=== PATIENT | female | born 1995 | race Caucasian/White ===

== ENCOUNTER 2016-12-07 23:57 | Emergency (ER) | payer OTHER ==
[~2016-12-07] VITALS: Ht 154.9 cm; Wt 46.6 kg
[~2016-12-07 23:57] MED LIST: BCPILLS PO; CLR10 PO; LISD30CA4 PO; VNTHFA/IN INH
[2016-12-08 00:01] VITALS: TEMP 36.6; Ht 154.9 cm; Wt 46.6 kg
[2016-12-08] MEDS ORDERED: ALBUT/IPRATROP 3MG/0.5MG NEB 3 ML VIAL ONE (00:05)
[2016-12-08] MEDS ORDERED: VNTHFA/IN INH (00:56)
[2016-12-08] MEDS ORDERED: PRED20TA2 PO (00:56)
[2016-12-08] MEDS ORDERED: ALBUTEROL HFA 8 GM INHALER INH ONE (01:00)
[2016-12-08 01:21] VITALS: BP 131/70; PULSE 66; O2SAT 99
--- NOTE | 2016-12-08 06:56 | EMERGENCY ROOM VISIT NOTE ---
History First contact with patient: 00:04 Chief Complaint: RESPIRATORY PROBLEMS Stated Complaint: ASTHMA ATTACK Nursing Triage Summary: Patient ambulatory to triage, states "Around 1100 today, I started having some trouble breathing. 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 I just moved and have no idea where my rescue inhaler is. We had some friends over and I have been talking a lot. The shortness of breath worsened over the last hour." Patient only able to speak in short sentences in traige; tripod breathing. History of Present Illness The patient is a 21 year old female who presents to the Emergency Room with complaints of worsening asthma symptoms over the past 12 hours. The patient has a history of asthma and is in the process of moving. The patient is unsure where her rescue inhaler is because of the move. She states that her symptoms have worsened over the past one hour. She has not had fever or chills. No additional symptoms. She rates her discomfort a 7/10. Review of Systems More than 10 systems were reviewed and otherwise negative with the exception of history of present illness. Past Medical/Surgical History Medical Problems: (1) Deviated septum (2) Staph infection Surgical Problems: (1) Hx of tonsillectomy (2) S/P rhinoplasty Family History Patient reports no known family medical history. Social History Smoking Status: Former Smoker Alcohol Use: occasionally Drug Use: none Marital Status: in relationship Housing Status: lives with roommate Occupation Status: [employer] student Current/Historical Medications Scheduled Albuterol Hfa (Ventolin Hfa), 2 PUFFS INH QID Lisdexamfetamine Dimesylate (Vyvanse), 30 MG PO BID Prednisone (Prednisone Tab), 2 TAB PO DAILY Physical Exam Vital Signs Date Time Temp Pulse Resp B/P (MAP) Pulse Ox O2 Delivery O2 Flow Rate FiO2 12/08/16 01:21 66 20 131/70 99 12/08/16 00:25 66 24 99 Room Air 12/08/16 00:11 Room Air 12/08/16 00:01 36.6 80 20 131/91 98 Room Air Pain Rating (0-10): 0 Physical Exam VITALS: Vitals are noted on the nurse's note and reviewed by myself. Vital signs stable. GENERAL: Well-developed, well-nourished, white female who is currently undergoing a DuoNeb breathing treatment upon my arrival to the room EARS: External ear normal. External auditory canals clear, tympanic membranes pearly robert without erythema or effusion bilaterally. HEART: Regular rate and rhythm without murmurs gallops or rubs. LUNGS: Clear to auscultation bilaterally without wheezes, rales or rhonchi. No retractions or accessory muscle use. Medical Decision & Procedures Medications Administered Medications (Trade) Dose Ordered Sig/Sugey Route Start Time Stop Time Status Last Admin Dose Admin Albuterol/ Ipratropium (Duoneb) 3 ml STK-MED ONCE .ROUTE 12/08/16 00:05 12/08/16 00:06 DC 12/08/16 00:05 3 ML Prednisone (PredniSONE TAB) 40 mg NOW STAT PO 12/08/16 00:15 12/08/16 00:16 DC 12/08/16 00:24 40 MG Albuterol (Ventolin Hfa Inhaler) 2 puffs NOW ONCE INH 12/08/16 01:00 12/08/16 01:01 DC 12/08/16 01:19 2 PUFFS ED Course Physical exam and history were performed. Nursing notes, EMR, and Medication List were personally reviewed. Patient appears to have a history of asthma with acute exacerbation. The patient was started on a DuoNeb as a protocol as the patient was having difficulty with wheezing and speaking in full sentences while in triage. The patient has a history of asthma and she states this feels identical to her previous episodes. I did provide the patient is a 40 mg prednisone here in the department. She was monitored for greater than 1 hour, and had essentially complete resolution of her symptoms after these 2 interventions. I do feel the patient is stable for discharge home. I will give her a few day course of prednisone as well as an inhaler to use if needed. She was certainly invited back to the emergency department with any new, worsening, or concerning symptoms. She was given additional discharge instructions as below and rated her discomfort a 0/10 at the time of departure. The chart was completed utilizing [employer] Speech Voice Recognition Software. Grammatical errors, random word insertions, pronoun errors, and incomplete sentences are an occasional consequence of this system due to software limitations, ambient noise, and hardware issues. Any formal questions or concerns about the content, text, or information contained within the body of this dictation should be directly addressed to the provider for clarification. . Medical Decision Differential diagnosis: Etiologies such as infections, reactive airway disease, pneumonia, pneumothorax , COPD, CHF, cardiac ischemia, pulmonary embolism, musculoskeletal, gastrointestinal, as well as others were entertained. Impression Primary Impression: Asthma exacerbation Departure Information Dispostion Home / Self-Care Condition GOOD Prescriptions Albuterol Hfa (VENTOLIN HFA) 200 Puffs/71282 Mcg Aers 2 PUFFS INH QID for Cough for 5 Days, #1 INHALER 1 Refill Prov: Tom Vicente PA-C 12/08/16 Prednisone (Prednisone Tab) 20 Mg Tab 2 TAB PO DAILY for 3 Days, #6 TAB Prov: Tom Vicente PA-C 12/08/16 Forms HOME CARE DOCUMENTATION FORM, IMPORTANT VISIT INFORMATION Patient Instructions [facility] Additional Instructions You were seen and evaluated today on an emergency basis only. This is not a substitute for, or an effort to provide, complete comprehensive medical care. It is not possible to recognize and treat all injuries or illnesses in a single emergency department visit. For this reason it is recommended that you followup with your Primary care physician for ongoing or persisting symptoms. Use albuterol 2 puffs every 4-6 hours as needed for additional relief of symptoms. Take prednisone 40 mg daily for the next 3 days. You are welcome to return to the emergency department anytime with new, worsening, or concerning symptoms.
== END 2016-12-08 01:22 | disposition home or self-care (01) ==
LOC: C.EDB 23:58
DX: J44.1 Chronic obstructive pulmonary disease with (acute) exacerbation (principal); Z87.891 Personal history of nicotine dependence

== ENCOUNTER 2017-02-25 05:55 | Emergency (ER) | payer OTHER ==
[~2017-02-25] VITALS: Ht 154.9 cm; Wt 46.4 kg
[~2017-02-25 05:55] MED LIST changes: -BCPILLS PO; -CLR10 PO
[2017-02-25 05:58] VITALS: TEMP 36.9; Ht 154.9 cm; Wt 46.4 kg
[2017-02-25] MEDS ORDERED: ALBUT/IPRATROP 3MG/0.5MG NEB 3 ML VIAL INH STA ×2 (06:06→06:34)
--- NOTE | 2017-02-25 06:07 | EMERGENCY ROOM VISIT NOTE ---
History Report prepared by Jayce: Marybel Bazan Under the Supervision of: Dr. Korey Snow D.O. First contact with patient: 06:05 Chief Complaint: RESPIRATORY PROBLEMS Stated Complaint: CAN'T BREATHE,ASTHMA History of Present Illness The patient is a 21 year old female who presents to the Emergency Room with complaints of shortness of breath and cough. The patient has a history of asthma and states that she noticed an exacerbation of her asthma which began yesterday morning. The patient recently stopped smoking cigarettes and states that she has had similar episodes in the past when she stop smoking. The patient states that she has a nonproductive cough and has noticed wheezing. She is using her albuterol metered-dose inhaler without relief. She has used it once today. The patient states that she has had a nebulizer machine in the past but does not have refills for currently. She has been on steroids for her asthma but not for a year. The patient denies any recent fevers or chills. She denies having any chest pain or leg swelling. The patient states her symptoms are significant at this time and are worsened with any exertion. Source of History: patient Onset: yesterday morning Position: other (global) Quality: other (shortness of breath and cough) Modifying Factors (Worsening): exertion Associated Symptoms: No fevers, No chills, No chest pain Review of Systems See HPI for pertinent positives & negatives. A total of 10 systems reviewed and were otherwise negative. Past Medical & Surgical Medical Problems: (1) Deviated septum (2) Staph infection Surgical Problems: (1) Hx of tonsillectomy (2) S/P rhinoplasty Family History Patient reports no known family medical history. Social History Smoking Status: Former Smoker Alcohol Use: occasionally Drug Use: none Marital Status: in relationship Housing Status: lives with roommate Occupation Status: [employer] student Current/Historical Medications Scheduled Albuterol Hfa (Ventolin Hfa), 2 PUFF INH Q4 Albuterol Sulf (Albuterol Sulfate), 1 UNIT NEB Q4 Fluticasone Prop/Salmeterol (Advair Diskus 250/50 60 Dose), 1 PUFF INH BID Lisdexamfetamine Dimesylate (Vyvanse), 30 MG PO BID Prednisone (Prednisone Tab), 40 MG PO DAILY Allergies Coded Allergies: Sesame Seed (Unverified Allergy, Unknown, GI ISSUES, 02/25/17) Shellfish (Unverified Allergy, Unknown, UNKNOWN, 02/25/17) Physical Exam Vital Signs Date Time Temp Pulse Resp B/P (MAP) Pulse Ox O2 Delivery O2 Flow Rate FiO2 02/25/17 08:47 68 18 106/62 96 02/25/17 07:34 80 20 125/66 94 Room Air 02/25/17 06:16 95 Room Air 02/25/17 05:58 36.9 89 24 115/69 95 Room Air Physical Exam GENERAL: Patient is awake alert in no acute distress patient is resting comfortably and showing no signs of anxiety EYES: The conjunctivae are clear. The pupils are round and reactive. EARS, NOSE, MOUTH AND THROAT: The nose is without any evidence of any deformity. Mucous membranes are moist tongue is midline NECK: The neck is nontender and supple. RESPIRATORY: Tachypnea is noted. The patient is sitting upright. She has mild conversational dyspnea but is able to speak in sentences. There are diminished breath sounds noted throughout. Expiratory wheezing is noted in all castellanos. CARDIOVASCULAR: Regular rate and rhythm noted there no murmurs rubs or gallops normal S1 normal S2 GASTROINTESTINAL: The abdomen is soft. Bowel sounds are present in all quadrants. Abdomen is nontender MUSCULOSKELETAL/EXTREMITIES: There is no evidence of gross deformity full range of motion is noted in the hips and shoulders SKIN: There is no obvious evidence of any rash. No calf tenderness was noted. NEUROLOGIC: Patient is awake alert and oriented x3. Medical Decision & Procedures ER Provider Diagnostic Interpretation: X-ray results as stated below per interpretation by me and the radiologist. CHEST ONE VIEW PORTABLE CLINICAL HISTORY: SOB, asthma condition COMPARISON STUDY: 02/20/2016 FINDINGS: The bones soft tissues and hemidiaphragms are normal. The cardiomediastinal silhouette is normal. The lungs are clear. The pulmonary vasculature is normal. IMPRESSION: Negative chest. The above report was generated using voice recognition software. It may contain grammatical, syntax or spelling errors. Electronically signed by: Lio Oliveros M.D. 02/25/2017 6:38 AM Dictated Date/Time: 02/25/2017 6:38 AM Medications Administered Medications (Trade) Dose Ordered Sig/Sugey Route Start Time Stop Time Status Last Admin Dose Admin Albuterol/ Ipratropium (Duoneb) 3 ml NOW STAT INH 02/25/17 06:06 02/25/17 06:07 DC 02/25/17 06:12 3 ML Prednisone (PredniSONE TAB) 60 mg NOW STAT PO 02/25/17 06:06 02/25/17 06:07 DC 02/25/17 06:12 60 MG Albuterol/ Ipratropium (Duoneb) 3 ml NOW STAT INH 02/25/17 06:34 02/25/17 06:35 DC 02/25/17 06:44 3 ML ED Course 0605: The patient was evaluated in room B3B. A complete history and physical examination were performed. 0606: Ordered Prednisone 60 mg PO, DuoNeb 3 ml INH. 0634: Ordered DuoNeb 3 ml INH. 0635: Patient reexamined. Patient resting more comfortably. Lung sounds improved. 0722: I reevaluated the patient and she is doing much better. I discussed the exam findings with her and I discussed the treatment plan. She verbalized complete understanding and agreement. She is ready to go home. Medical Decision Prior records/ancillary studies reviewed. Triage Nursing notes reviewed. The patient's history was concerning for respiratory difficulties. Differential diagnosis: Etiologies such as infections, reactive airway disease, pneumonia, pneumothorax , COPD, CHF, cardiac ischemia, pulmonary embolism, musculoskeletal, gastrointestinal, as well as others were entertained. The patient is a 21-year-old female who has a history of asthma who presented to the emergency department for an evaluation of shortness of breath. The patient also uses tobacco products. The patient was found have significant wheezing on initial valuation. The chest x-ray revealed no definite infiltrate but had significant hyperinflation. The patient was treated with prednisone in the emergency department. She received multiple DuoNeb nebulizers in the emergency department. She was reevaluated multiple times. On subsequent reevaluation she was feeling much better. Her symptoms had resolved. She was able to ambulate without difficulty. At this time the patient does not have a primary care physician. I discussed her case with the department pillowcase cutter. We were able to get the patient an appointment with a primary care physician. I also feel at this time she would benefit from a course of oral steroids as well as an inhaled steroid. She was encouraged to continue all medications as prescribed and rest. She was also encouraged to stop smoking. She was encouraged to keep her appointment as scheduled and return to the emergency department immediately if symptoms change worsen or the need arises. Medication Reconcilliation Current Medication List: was personally reviewed by me Impression Primary Impression: Asthma exacerbation Additional Impression: Shortness of breath Scribe Attestation The scribe's documentation has been prepared under my direction and personally reviewed by me in its entirety. I confirm that the note above accurately reflects all work, treatment, procedures, and medical decision making performed by me. Departure Information Dispostion Home / Self-Care Prescriptions Prednisone (Prednisone Tab) 20 Mg Tab 40 MG PO DAILY, #10 TAB Prov: Korey Snow, DO 02/25/17 Fluticasone Prop/Salmeterol (Advair Diskus 250/50 60 Dose) 1 Ea Aerp 1 PUFF INH BID, #1 INHALER Prov: Korey Snow, DO 02/25/17 Albuterol Sulf (Albuterol Sulfate) 2.5 Mg/3 Ml Nebu 1 UNIT NEB Q4, #1 BOX Prov: Korey Snow, DO 02/25/17 Albuterol Hfa (VENTOLIN HFA) 200 Puffs/34799 Mcg Aers 2 PUFF INH Q4, #1 INHALER Prov: Korey Snow, DO 02/25/17 Referrals No Doctor, Assigned (PCP) Forms HOME CARE DOCUMENTATION FORM, IMPORTANT VISIT INFORMATION, WORK / SCHOOL INSTRUCTIONS, Work Instructions Patient Instructions Asthma, ED Smoking Cessation, [facility] Additional Instructions Schedule follow-up appointment with your primary care physician as soon as possible. Rest and avoid any strenuous activity. Avoid any tobacco products. Continue all medications as prescribed. Start the prednisone tomorrow. You were given the first dose in the emergency department today. Return to the emergency department immediately if symptoms change worsen or the need arises. Problem Qualifiers Primary Impression: Asthma exacerbation Asthma severity: mild Asthma persistence: unspecified Qualified Codes: J45.901 - Unspecified asthma with (acute) exacerbation
[2017-02-25 06:16] VITALS: O2SAT 95
--- NOTE | 2017-02-25 06:40 | DIAGNOSTIC IMAGING REPORT ---
CHEST ONE VIEW PORTABLE CLINICAL HISTORY: SOB, asthma condition COMPARISON STUDY: 02/20/2016 FINDINGS: The bones soft tissues and hemidiaphragms are normal. The cardiomediastinal silhouette is normal. The lungs are clear. The pulmonary vasculature is normal. IMPRESSION: Negative chest. The above report was generated using voice recognition software. It may contain grammatical, syntax or spelling errors. Electronically signed by: Lio Oliveros M.D. 02/25/2017 6:38 AM Dictated Date/Time: 02/25/2017 6:38 AM
[2017-02-25] MEDS ORDERED: PRED20TA2 PO (07:33)
[2017-02-25] MEDS ORDERED: ADVIN25/60 INH (07:33)
[2017-02-25] MEDS ORDERED: VNTHFA/IN INH (07:33)
[2017-02-25] MEDS ORDERED: ALBINSX NEB (07:33)
[2017-02-25 08:47] VITALS: BP 106/62; PULSE 68; O2SAT 96
== END 2017-02-25 08:54 | disposition home or self-care (01) ==
LOC: C.EDB 05:56
DX: J45.901 Unspecified asthma with (acute) exacerbation (principal); R06.02 Shortness of breath; Z87.891 Personal history of nicotine dependence

== ENCOUNTER 2017-06-03 17:06 | Emergency (ER) | payer OTHER ==
[~2017-06-03] VITALS: Ht 157.5 cm; Wt 52.4 kg
[~2017-06-03 17:06] MED LIST changes: +ADVIN25/60 INH; +ALBINSX NEB; +PRED20TA2 PO
[2017-06-03] MEDS ORDERED: EpINEphrine INJ 1MG/ML AMP 1 MG/ML AMP IM STA (17:08)
[2017-06-03] MEDS ORDERED: METHYLPREDNISOLONE 125 MG VIAL IV STA (17:09)
[2017-06-03] MEDS ORDERED: EPINEPHRINE JUNIOR AUTO-INJECT 0.15 MG SYR ONE ×2 (17:09→17:21)
[2017-06-03] MEDS ORDERED: RANITIDINE IV STA (17:09)
[2017-06-03] MEDS ORDERED: DiphenhydrAMINE HCL 50 MG/ML VIAL IV STA (17:09)
[2017-06-03] MEDS ORDERED: DEXTROSE 5% IV STA (17:09)
[2017-06-03] MEDS ORDERED: METHYLPREDNISOLONE 125 MG VIAL ONE (17:11)
[2017-06-03] MEDS ORDERED: DiphenhydrAMINE HCL 50 MG/ML VIAL ONE (17:13)
[2017-06-03] MEDS ORDERED: ALBUT/IPRATROP 3MG/0.5MG NEB 3 ML VIAL INH ONE (17:15)
[2017-06-03] MEDS ORDERED: SODIUM CHLORIDE 0.9% 1000ML 2,000 ML IV STA (17:16)
[2017-06-03 17:25] LABS: BASO % 0.2 %; BASO ABS # 0.04 K/uL (0-0.2); EOS ABS # 0.34 K/uL (0-0.5); HEMOGLOBIN 14.9 g/dL (12.0-16.0); IG# 0.05 K/uL (0.00-0.02); LYMPH ABS # 2.56 K/uL (1.2-3.4); MEAN CELL VOLUME 87.7 fL (80-100); MEAN CORPUSCULAR HEMOGLOBIN 31.1 pg (25-34); MEAN CORPUSCULAR HGB CONC 35.5 g/dl (32-36); MONO % 5.1 %; MONO ABS # 0.87 K/uL (0.11-0.59); NEUT % 77.4 %; NEUT ABS # 13.18 K/uL (1.4-6.5); PLATELET COUNT 360 K/uL (130-400); RED CELL DISTRIBUTION WIDTH CV 12.8 % (11.5-14.5); RED CELL DISTRIBUTION WIDTH SD 41.2 fL (36.4-46.3); WHITE BLOOD COUNT 17.04 K/uL (4.8-10.8)
--- NOTE | 2017-06-03 17:29 | DIAGNOSTIC IMAGING REPORT ---
SINGLE VIEW CHEST CLINICAL HISTORY: Atypical chest pain. FINDINGS: An AP, portable, upright chest radiograph is compared to study dated 02/25/2017. The examination is degraded by portable technique and patient rotation. The cardiomediastinal silhouette is unremarkable. The lungs and pleural spaces are clear. No pneumothorax is seen. The bony thorax is grossly intact. IMPRESSION: No active disease in the chest. Electronically signed by: Zi Pillai M.D. 06/03/2017 5:28 PM Dictated Date/Time: 06/03/2017 5:27 PM
[2017-06-03 17:32] VITALS: TEMP 36.6; Ht 157.5 cm; Wt 52.4 kg
[2017-06-03 17:39] VITALS: PULSE 104; O2SAT 95
--- NOTE | 2017-06-03 17:44 | EMERGENCY ROOM VISIT NOTE ---
History Report prepared by Jayce: Renetta Yang Under the Supervision of: Dr. Efrain Joe M.D. First contact with patient: 17:06 Chief Complaint: ALLERGIC REACTION Stated Complaint: ALLERGIC REACTION Nursing Triage Summary: Arrives with police; allergic reaction severe. Pt reports she was cleaning. Reports director of it operations the same she always uses. Pt had ate brown rice one hour earlier. Reports scented candle was new. 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 She states that she suddenly started sneezing and her chest and mouth became itchy. She states her feet started swelling. She notes a rash over her chest and arms. She took Prednisone , Advair, and Albuterol. She states that she lit a new candle today. She reports dusting and cleaning today. She states that she is allergic to dust, though has never had this type of reaction before. She denies any history of allergic reactions. She has a history of asthma and anxiety. Source of History: patient Onset: LEAVE COORDINATOR Position: other (global ) Quality: other (allergic reaction) Timing: other (episodic ) Associated Symptoms: + rash (chest and arms) Note: She notes sneezing, itchy chest and mouth, and swollen feet. Review of Systems See HPI for pertinent positives and negatives. A total of ten systems were reviewed and were otherwise negative. Past Medical & Surgical Medical Problems: (1) Anxiety (2) Asthma (3) Asthma exacerbation (4) Bronchitis (5) Cellulitis of right finger (6) Deviated septum (7) Fall (8) Infected cuticle (9) Palpitations (10) Pneumonia (11) (12) Rib pain on right side (13) Staph infection Surgical Problems: (1) Hx of tonsillectomy (2) S/P rhinoplasty Family History Cancer Social History Smoking Status: Current Every Day Smoker (2 cigarettes/day) Smokeless Tobacco Use: No Alcohol Use: heavy (1/day) Drug Use: none Marital Status: in relationship Housing Status: lives with roommate Occupation Status: [employer] student Current/Historical Medications Scheduled Ascorbic Acid (Vitamin C), 1,000 MG PO DAILY Fluticasone Prop/Salmeterol (Advair Diskus 250/50 60 Dose), 1 PUFF INH BID Prednisone (Prednisone Tab), 1 DOSE PO DAILY Prednisone (Prednisone), 3 TAB PO DAILY Ranitidine Hcl (Zantac), 150 MG PO BID Scheduled PRN Albuterol Hfa (Ventolin Hfa), 2 PUFFS INH Q4H PRN for ASTHMA SYMPTOMS Albuterol Sulf (Albuterol Sulfate), 1 DOSE INH Q4H PRN for ASTHMA SYMPTOMS Diphenhydramine Hcl (Benadryl Allergy), 1 CAP PO QID PRN for Itching Epinephrine (Epipen 2-Iam), 0.3 MG IM DIRECTED PRN for Allergic Reaction Ibuprofen Tab (Advil), 200-800 MG PO DIRECTED PRN for Pain Allergies Coded Allergies: Dust (Verified Allergy, Intermediate, ITCHY EYES, SNEEZING, RUNNY NOSE, ) POLLEN (Verified Allergy, Intermediate, ITCHY EYES, SNEEZING, RUNNY NOSE, 06/03/17) Sesame Seed (Verified Allergy, Unknown, POSITIVE ALLERGY TEST, 06/03/17) Shellfish (Verified Allergy, Unknown, POSITIVE ALLERGY TEST, 06/03/17) Physical Exam Vital Signs Date Time Temp Pulse Resp B/P (MAP) Pulse Ox O2 Delivery O2 Flow Rate FiO2 06/03/17 19:51 93 16 107/46 97 Room Air 06/03/17 19:02 103 15 122/53 99 Room Air 06/03/17 19:00 95 15 99 06/03/17 18:45 113 23 06/03/17 18:30 84 18 113/48 100 06/03/17 18:15 86 19 100 06/03/17 18:04 82 18 128/67 100 Nebulizer 8.0 06/03/17 18:04 100 8.0 06/03/17 18:01 128/67 06/03/17 18:00 94 18 100 06/03/17 17:56 129/62 06/03/17 17:45 84 10 99 06/03/17 17:39 104 22 95 Room Air 06/03/17 17:34 98 06/03/17 17:33 119/69 06/03/17 17:32 36.6 115 18 119/69 97 Nebulizer 06/03/17 17:30 118 27 91 06/03/17 17:15 151 19 92 06/03/17 17:15 152 Physical Exam GENERAL: Awake, alert, in moderate respiratory distress. HENT: Normocephalic, atraumatic. Periorbital swelling, mild lower lip swelling. No oral pharyngeal edema. EYES: Normal conjunctiva. Sclera non-icteric. NECK: Supple. No nuchal rigidity. FROM. No JVD. No stridor. RESPIRATORY: Severe wheezing with diminished breath sounds. CARDIAC: ST. Extremities warm and well perfused. Pulses equal. ABDOMEN: Soft, non-distended. No tenderness to palpation. No rebound or guarding. No masses. RECTAL: Deferred. MUSCULOSKELETAL: Chest examination reveals no tenderness. The back is symmetrical on inspection without obvious abnormality. There is no CVA tenderness to palpation. No joint edema. LOWER EXTREMITIES: Calves are equal size bilaterally and non-tender. No edema. No discoloration. NEURO: Normal sensorium. No sensory or motor deficits noted. SKIN: No jaundice noted. Scattered raised erythematous, blanchable patches consistent with hives on chest, back, and arms. Medical Decision & Procedures ER Provider Diagnostic Interpretation: SINGLE VIEW CHEST CLINICAL HISTORY: Atypical chest pain. FINDINGS: An AP, portable, upright chest radiograph is compared to study dated 02/25/2017. The examination is degraded by portable technique and patient rotation. The cardiomediastinal silhouette is unremarkable. The lungs and pleural spaces are clear. No pneumothorax is seen. The bony thorax is grossly intact. IMPRESSION: No active disease in the chest. Electronically signed by: Zi Pillai M.D. 06/03/2017 5:28 PM Dictated Date/Time: 06/03/2017 5:27 PM Laboratory Results 06/03/17 17:10 Red Blood Count 4.79, Mean Corpuscular Volume 87.7, Mean Corpuscular Hemoglobin 31.1, Mean Corpuscular Hemoglobin Concent 35.5, Mean Platelet Volume 10.0, Neutrophils (%) (Auto) 77.4, Lymphocytes (%) (Auto) 15.0, Monocytes (%) (Auto) 5.1, Eosinophils (%) (Auto) 2.0, Basophils (%) (Auto) 0.2, Neutrophils # (Auto) 13.18, Lymphocytes # (Auto) 2.56, Monocytes # (Auto) 0.87, Eosinophils # (Auto) 0.34, Basophils # (Auto) 0.04 06/03/17 17:10 Test 06/03/17 17:10 White Blood Count 17.04 K/uL (4.8-10.8) Red Blood Count 4.79 M/uL (4.2-5.4) Hemoglobin 14.9 g/dL (12.0-16.0) Hematocrit 42.0 % (37-47) Mean Corpuscular Volume 87.7 fL (80-100) Mean Corpuscular Hemoglobin 31.1 pg (25-34) Mean Corpuscular Hemoglobin Concent 35.5 g/dl (32-36) Platelet Count 360 K/uL (130-400) Mean Platelet Volume 10.0 fL (7.4-10.4) Neutrophils (%) (Auto) 77.4 % Lymphocytes (%) (Auto) 15.0 % Monocytes (%) (Auto) 5.1 % Eosinophils (%) (Auto) 2.0 % Basophils (%) (Auto) 0.2 % Neutrophils # (Auto) 13.18 K/uL (1.4-6.5) Lymphocytes # (Auto) 2.56 K/uL (1.2-3.4) Monocytes # (Auto) 0.87 K/uL (0.11-0.59) Eosinophils # (Auto) 0.34 K/uL (0-0.5) Basophils # (Auto) 0.04 K/uL (0-0.2) RDW Standard Deviation 41.2 fL (36.4-46.3) RDW Coefficient of Variation 12.8 % (11.5-14.5) Immature Granulocyte % (Auto) 0.3 % Immature Granulocyte # (Auto) 0.05 K/uL (0.00-0.02) Anion Gap 8.0 mmol/L (3-11) Est Creatinine Clear Calc Drug Dose 83.8 ml/min Estimated GFR () 115.1 Estimated GFR (Non- 99.4 BUN/Creatinine Ratio 11.6 (10-20) Calcium Level 8.9 mg/dl (8.5-10.1) Human Chorionic Gonadotropin, Qual NEG (NEG) Laboratory results reviewed by me Medications Administered Medications (Trade) Dose Ordered Sig/Sugey Route Start Time Stop Time Status Last Admin Dose Admin Epinephrine (Epipen Jr) 0.15 mg STK-MED ONCE .ROUTE 06/03/17 17:09 06/03/17 17:10 DC 1/30/18 17:28 0.15 MG Methylprednisolone Sodium Succinate (Solu-Medrol IV) 125 mg STK-MED ONCE .ROUTE 06/03/17 17:11 06/03/17 17:12 DC 06/03/17 17:29 125 MG Ranitidine HCl 75 mg/Dextrose 103 ml @ 200 mls/hr NOW STAT IV 06/03/17 17:09 06/03/17 17:39 DC 06/03/17 18:04 200 MLS/HR Albuterol/ Ipratropium (Duoneb) 12 ml ONE ONCE INH 06/03/17 17:15 06/03/17 17:16 DC 06/03/17 17:26 12 ML Diphenhydramine HCl (Benadryl Inj) 50 mg STK-MED ONCE .ROUTE 06/03/17 17:13 06/03/17 17:14 DC 06/03/17 17:15 50 MG Sodium Chloride 2,000 ml @ 999 mls/hr Q2H1M STAT IV 06/03/17 17:16 06/03/17 19:16 DC 06/03/17 17:31 999 MLS/HR Epinephrine (Epipen Jr) 0.15 mg STK-MED ONCE .ROUTE 06/03/17 17:21 06/03/17 17:22 DC 06/03/17 17:21 0.15 MG ECG Indication: other (allergic reaction) Rate (beats per minute): 87 Rhythm: normal sinus Findings: no acute ischemic change, other (Normal axis.) Change: Patient's electrocardiogram interpreted by me. ED Course 170: The patient was evaluated in room A2. A complete history and physical exam was performed. 1819: I reassessed the patient at this time. She is feeling better and resting comfortably. 2025: I reassessed the patient at this time. She is feeling better and resting comfortably. I discussed the results and treatment plan with the patient. I answered all pertaining questions that she had. She expressed understanding and verbalized agreement. The patient will be discharged home. Medical Decision I reviewed the patient's past medical history, medications, and the nursing notes as described above. Differential diagnosis: Etiologies such as allergic reaction, anaphylaxis, urticaria, Woodard-Oscar syndrome, toxic epidermal necrolysis, erythema multiforme, cellulitis, as well as others were entertained. The patient is a 21-year-old woman with a past medical history of asthma who presents emergency Department with severe allergic reaction after she used a new candle at home and was dusting her house per hpi. On arrival the patient is in moderate respiratory distress with diminished breath sounds throughout and scattered wheezes, mild periorbital edema and scattered patches of hives, all concerning for anaphylactic reaction. Patient was given epinephrine on arrival with good effect. Subsequently treated with Solu-Medrol, hour of continuous neb, Benadryl and Zantac all with good effect and complete resolution of the patient's symptoms. Labs notable for a leukocytosis to 17 likely stress reaction given the patient's significant distress on arrival. EPIPEN given to the patient with instructions. Plan for prednisone, Zantac, Benadryl and pcp f/u. Findings and plan for follow-up reviewed with patient. Patient agreeable and d/c'd per discharge instructions. Medication Reconcilliation Current Medication List: was personally reviewed by me Blood Pressure Screening Patient's blood pressure: Normal blood pressure Impression Primary Impression: Anaphylaxis Critical Care I have personally spent greater than 90 minutes of critical care time in the direct management of this patient. This includes bedside care, interpretation of diagnostic studies, and testing, discussion with consultants, patient, and family members, and other required patient management activities. This 90 minutes is in excess of all separately billable procedures. Scribe Attestation The scribe's documentation has been prepared under my direction and personally reviewed by me in its entirety. I confirm that the note above accurately reflects all work, treatment, procedures, and medical decision making performed by me. Departure Information Dispostion Home / Self-Care Prescriptions Epinephrine (EPIPEN 2-IAM) 0.3 Mg Inj 0.3 MG IM DIRECTED Y for Allergic Reaction, #2 PEN PRN severe allergic reaction, may repeat in 5-15 minutes if there is no response. Prov: Efrain Joe M.D. 06/03/17 Diphenhydramine Hcl (BENADRYL ALLERGY) 25 Mg Cap 1 CAP PO QID Y for Itching for 7 Days, #30 CAP Prov: Efrain Joe M.D. 06/03/17 Ranitidine Hcl (ZANTAC) 150 Mg Tab 150 MG PO BID for 7 Days, #14 TAB Prov: Efrain Joe M.D. 06/03/17 Prednisone (Prednisone) 20 Mg Tab 3 TAB PO DAILY for 4 Days, #12 TAB FOR 4 DAYS Prov: Efrani Joe M.D. 06/03/17 Referrals No Doctor, Assigned (PCP) Forms HOME CARE DOCUMENTATION FORM, IMPORTANT VISIT INFORMATION Patient Instructions ED Anaphylaxis General, [facility] Additional Instructions Please follow up with your primary care physician in the next 1-3 days for re- evaluation and possible cross country/track and field coach referral. You likely had a severe allergic reaction (anaphylaxis). Avoid potential triggers such as your new candle or dust exposure. Otherwise, after medications your exam, EKG, chest xray, and lab results did not show signs of an emergent condition at this time. Prednisone, Benadryl, and Zantac as directed. EPIPEN as needed for severe allergic reaction. Use your albuterol inhaler 2 puffs every 4 hours for the next 48 hours and then as needed thereafter. Drink plenty of fluids to ensure hydration. Return to the emergency department for worsening symptoms as described in the accompanying instructions.
[2017-06-03 17:46] LABS: CALCIUM 8.9 mg/dl (8.5-10.1); CREATININE 0.84 mg/dl (0.60-1.20); POTASSIUM 4.1 mmol/L (3.5-5.1)
[2017-06-03] MEDS ORDERED: PRED20TA2 PO (17:49)
[2017-06-03] MEDS ORDERED: ALBINSX INH (17:49)
[2017-06-03] MEDS ORDERED: IBUP-103 PO (17:49)
[2017-06-03] MEDS ORDERED: VNTHFA/IN INH (17:49)
[2017-06-03] MEDS ORDERED: ADVIN25/60 INH (17:49)
[2017-06-03] MEDS ORDERED: ASCO10003 PO (17:49)
[2017-06-03 18:04] VITALS: O2SAT 100
[2017-06-03] MEDS ORDERED: EPINEPHRINE ADULT AUTO-INJECT 0.3 MG SYR IM STA (20:07)
[2017-06-03] MEDS ORDERED: DIPH25CA65 PO (20:20)
[2017-06-03] MEDS ORDERED: PRED20TA PO (20:20)
[2017-06-03] MEDS ORDERED: EPP3/2 IM (20:20)
[2017-06-03] MEDS ORDERED: RANI150T3 PO (20:20)
[2017-06-03 20:30] VITALS: BP 128/64; PULSE 89; O2SAT 97
== END 2017-06-03 20:30 | disposition home or self-care (01) ==
LOC: EDBD 17:06 → C.EDA 17:08
DX: T78.2XXA Anaphylactic shock, unspecified, initial encounter (principal); X58.XXXA Exposure to other specified factors, initial encounter; J45.909 Unspecified asthma, uncomplicated; F41.9 Anxiety disorder, unspecified; F17.210 Nicotine dependence, cigarettes, uncomplicated